=== PATIENT | female | born 1965 | race Caucasian/White ===

== ENCOUNTER 2017-05-26 15:41 | Outpatient (CLI) | payer BC ==
[2017-05-26 16:39] LABS: BASOPHILS # (AUTO) 0.1 10^3/uL (0.0-0.1); EOSINOPHILS # (AUTO) 0.2 10^3/uL (0.0-0.7); EOSINOPHILS % (AUTO) 3.5 %; HCT - HEMATOCRIT 39.6 % (37.0-47.0); HGB - HEMOGLOBIN 13.2 g/dL (12.0-16.0); LYMPHOCYTES # (AUTO) 2.3 10^3/uL (1.5-3.5); LYMPHOCYTES % (AUTO) 40.1 %; MEAN CORPUSCULAR HEMOGLOBIN 29.1 pg (27.0-31.0); MEAN CORPUSCULAR HGB CONC 33.2 g/dL (32.0-36.0); MEAN CORPUSCULAR VOLUME 87.4 fL (81.0-99.0); MEAN PLATELET VOLUME 9.7 fL (7.9-10.8); MONOCYTES # (AUTO) 0.6 10^3/uL (0.0-1.0); MONOCYTES % (AUTO) 10.7 %; NEUTROPHILS # (AUTO) 2.6 10^3/uL (1.5-6.6); NEUTROPHILS % (AUTO) 44.7 %; RED BLOOD COUNT 4.53 10^6/uL (4.20-5.40); RED CELL DISTRIBUTION WIDTH 13.7 % (12.0-15.0); UNCORRECTED WHITE BLOOD COUNT 5.8 x10^3/uL; WHITE BLOOD COUNT 5.8 x10^3/uL (4.8-10.8)
[2017-05-26 17:08] LABS: ALBUMIN/GLOBULIN RATIO 1.6 (1.0-2.2); BILIRUBIN,TOTAL 0.3 mg/dL (0.2-1.0); BUN - BLOOD UREA NITROGEN 15 mg/dL (6-20); CALCIUM 9.6 mg/dL (8.5-10.3); CARBON DIOXIDE - CO2 26 mmol/L (21-32); CHLORIDE 104 mmol/L (101-111); CREATININE 0.7 mg/dL (0.4-1.0); GFR - MDRD 88 (>89); GLUCOSE 90 mg/dL (70-100); POTASSIUM 3.3 mmol/L (3.5-5.0); SODIUM 138 mmol/L (135-145); TOTAL PROTEIN 7.3 g/dL (6.7-8.2)
[2017-05-26 17:19] LABS: FERRITIN 50.2 ng/mL (11.0-306.8)
[2017-05-26 17:33] LABS: THYROID STIMULATING HORMONE 1.63 uIU/mL (0.34-5.60)
[2017-05-28 18:11] LABS: TEST RESULT REPORT (())
[2017-05-28 19:47] LABS: ANA SCREEN POSITIVE (NEGATIVE)
[2017-06-03 23:07] LABS: TEST RESULT REPORT (())
== END 2017-05-26 15:42 | disposition home or self-care (01) ==
LOC: LAB 15:41
PROVIDERS: ATTEND Nurse Practitioner
DX: R53.83 Other fatigue (principal)
CPT/HCPCS: 36415; 80053; 81599; 82728; 84443; 85025; 85651; 86038; 86140

== ENCOUNTER 2020-09-06 14:13 | Emergency (ER) | payer BC ==
[2020-09-06] MEDS ORDERED: HYDROmorphone 1 MG/ML CARPUJECT IVP STA (15:55)
--- NOTE | 2020-09-06 15:56 | ED Physician Documentation ---
History of Present Illness - Stated complaint Stated Complaint: FALL - Chief complaint Chief Complaint: Trauma Ext - History obtained from History obtained from: Patient - History of Present Illness Timing: Prior to arrival - Additonal information Additional information: 54-year-old female comes into the emergency department with chief complaint of right wrist and bilateral hip and coccyx pain after a fall down about 3 stairs at this afternoon. She reports landing directly on her bottom and had such severe pain she could not get up for about 15 minutes. Did not strike her head or lose consciousness. Takes no oral anticoagulants. At present she is standing and mildly antalgic gait. However she feels popping within both of her hips when she walks. She also has pain on the right wrist radial side without deformity. No history of previous injury here. Review of Systems Constitutional: reports: Reviewed and negative Ears: reports: Reviewed and negative Nose: reports: Reviewed and negative Throat: reports: Reviewed and negative Cardiac: reports: Reviewed and negative Respiratory: reports: Reviewed and negative : reports: Reviewed and negative Skin: reports: Reviewed and negative Musculoskeletal: reports: Back pain, Joint pain Neurologic: reports: Reviewed and negative Psychiatric: reports: Reviewed and negative PD PAST MEDICAL HISTORY - Past Medical History Other Past Medical History: hx of sepsis - Past Surgical History Past Surgical History: No HEENT: Tonsil/Adenoidectomy - Present Medications Home Medications: Ambulatory Orders Medication Instructions Recorded Confirmed Hydrocodone/Acetaminophen [[place] 1 each PO BID PRN #10 tablet 09/06/20 5-325 Tablet] Ibuprofen [Motrin] 600 mg PO Q6H PRN #30 tab 09/06/20 - Allergies Allergies/Adverse Reactions: Allergies Allergy/AdvReac Type Severity Reaction Status Date / Time Sulfa (Sulfonamide Allergy Unknown Verified 05/20/16 16:04 Antibiotics) Tetracyclines Allergy Emesis Verified 09/06/20 14:18 - Social History Does the pt smoke?: No Smoking Status: Never smoker Does the pt drink ETOH?: No Does the pt have substance abuse?: No - Immunizations Immunizations are current?: Yes PD ED PE EXPANDED - General General: Alert, In Pain - Neck Neck: Adenopathy, Other. No: Soft tissue TTP - Back Back: No: Normal ROM (No midline thoracic or lumbar tenderness elicited. Reduced range of motion motion with forward flexion. Bilateral paraspinous tenderness. She does have very low midline coccyx pain.), Vertebral tenderness, CVA TTP right, CVA TTP left - Extremities Extremities: Right wrist (Tenderness distal radii. No swelling or deformity. Pain with passive motion. No snuffbox tenderness. 2+ radial pulse.) Results - Vitals Vitals: Vital Signs - 24 hr 09/06/20 09/06/20 14:18 16:50 Temperature 36.5 C 37.0 C Heart Rate 83 82 Respiratory 16 16 Rate Blood Pressure 139/92 H 111/82 H O2 Saturation 97 99 Oxygen O2 Source Room air - Rads (name of study) right wrist Radiology: Final report received (No acute fracture or dislocation) Bilateral hips Radiology: Final report received (No acute fracture. Osteoarthritis is noted.) sacrum/coccyx Radiology: Final report received (No acute fracture. Chronic appearing deformity involving the lower sacrum upper coccyx.) PD MEDICAL DECISION MAKING - ED course Complexity details: reviewed results, re-evaluated patient, considered differential, d/w patient, d/w family ED course: 54-year-old female presents to the emergency department with with acute right wr ist pain and bilateral hip coccyx pain after a fall down stairs at home today. On exam she has no snuffbox tenderness but the wrist is tender over the radial prominence. X-ray does not show any acute fracture pathology. However she will be placed in a Velcro thumb spica wrist splint. If her pain to the wrist is not markedly better in 7 to 10 days she is to return for repeat imaging. She also reported bilateral hip and coccyx pain. She is ambulatory though mildly Dolgic. X-rays do not show any acute fractures or deformity. Osteoarthritic changes are noted. This patient will be discharged home with prescription for ibuprofen and a very small amount of hydrocodone to be used for severe pain. Emergent return precautions discussed Departure - Departure Disposition: 01 Home, Self Care Clinical Impression: Fall (on) (from) other stairs and steps, initial encounter, Bilateral hip pain, Pain in the coccyx Contusion of wrist, right Qualifiers: Encounter type: initial encounter Qualified Code(s): S60.211A - Contusion of right wrist, initial encounter Condition: Stable Record reviewed to determine appropriate education?: Yes Instructions: ED Splint Care Velcro, ED Sprain Wrist Prescriptions: Ibuprofen [Motrin] 600 mg PO Q6H PRN #30 tab PRN Reason: Pain Hydrocodone/Acetaminophen [[place] 5-325 Tablet] 1 each PO BID PRN #10 tablet PRN Reason: Pain Comments: The x-rays of your hips show osteoarthritis but there are no acute fractures seen. It does appear as though you may have fractured your coccyx sometime in the distant past however. The x-ray of your right wrist does not show any broken bones. This may simpley be a bad contusion or sprain of the wrist. However I would like you to wear the wrist splint for much of the next week. I would like you to take ibuprofen 3 times a day with food for the next 5 to 6 days. If your pain is not markedly better within 7-10 you should return to the emergency department for repeat imaging of the wrist. I have prescribed a very limited amount of hydrocodone. Please be careful using this. It may make you dizzy and unsafe to drive.
--- NOTE | 2020-09-06 16:43 | XRAY Report ---
PROCEDURE: Wrist 3 View RT INDICATIONS: r/o fx after fall TECHNIQUE: 3 views of the wrist were acquired. COMPARISON: None FINDINGS: Bones: No fractures or dislocations. No suspicious bony lesions. Mild osteophytic changes along ra dial aspect of right wrist are seen. Scaphoid view: Scaphoid is grossly intact. Soft tissues: No suspicious soft tissue calcifications. IMPRESSION: No acute right wrist fracture or dislocation. Mild wrist joint osteoarthritis. Reviewed by: Emil Young MD on 09/06/2020 4:42 PM PDT Approved by: Emil Young MD on 09/06/2020 4:42 PM PDT Station ID: [id number]
--- NOTE | 2020-09-06 16:44 | XRAY Report ---
PROCEDURE: Sacrum/Coccyx INDICATIONS: fall, r/o fx TECHNIQUE: 3 views of the sacrum and coccyx acquired. COMPARISON: None FINDINGS: Bones: No acute fractures or dislocations. Likely chronic deformity involving lower sacrum/upper светлана cyx is seen. Bilateral sacroiliac joint osteoarthritic changes are seen. No evidence of ankylosis or erosion. No suspicious bony lesions. Soft tissues: Visualized bowel gas pattern is normal. No suspicious soft tissue densities. IMPRESSION: No gross acute sacral or coccygeal fracture. Chronic appearing deformity involving lower sacrum/upper coccyx. Bilateral sacroiliac joint osteoarthritis. Reviewed by: Emil Young MD on 09/06/2020 4:43 PM PDT Approved by: Emil Young MD on 09/06/2020 4:43 PM PDT Station ID: [id number]
--- NOTE | 2020-09-06 16:45 | XRAY Report ---
PROCEDURE: Hips 2V BILAT INDICATIONS: fall, r/o fx TECHNIQUE: 3 views of the hip were acquired. COMPARISON: None FINDINGS: Bones: No fractures or dislocations. Mild to moderate bilateral hip joint osteoarthritic changes are seen slightly worse on the right side. No evidence of avascular necrosis of femoral head. No suspici ous bony lesions. The visualized pelvic ring appears intact. Soft tissues: No suspicious soft tissue calcifications or masses. IMPRESSION: Mild to moderate bilateral hip joint osteoarthritis slightly worse on the right side. No hip fracture or dislocation. No evidence of avascular necrosis. Reviewed by: Emil Young MD on 09/06/2020 4:44 PM PDT Approved by: Emil Young MD on 09/06/2020 4:44 PM PDT Station ID: [id number]
[2020-09-06 16:51] VITALS: BP 111/82
== END 2020-09-06 17:20 | disposition home or self-care (01) ==
LOC: ED 14:13
DX: S60.211A Contusion of right wrist, initial encounter (principal); W10.9XXA Fall (on) (from) unspecified stairs and steps, initial encounter
CPT/HCPCS: 72220; 73110; 73521; 96374; 99283; 99284; J1170; 80185

== ENCOUNTER 2020-09-24 08:15 | Emergency (ER) | payer BC ==
[2020-09-24] MEDS ORDERED: KETOROLAC 60 MG/2 ML VIAL IM STA (09:08)
--- NOTE | 2020-09-24 09:44 | XRAY Report ---
PROCEDURE: Thoracic Spine 3 View INDICATIONS: midthoracic pain s/p fall 10d ago TECHNIQUE: 3 views of the thoracic spine were acquired. COMPARISON: None. FINDINGS: Bones: No fractures or dislocations. No suspicious bony lesions. 12 pairs of ribs are noted, and a ppear intact where visualized. Age-appropriate degenerative changes are seen. Soft tissues: No paravertebral stripe thickening. IMPRESSION: Normal plain films for age, without a recent fracture identified. Reviewed by: Scott Schneider MD on 09/24/2020 8:43 AM [facility] Approved by: Scott Schneider MD on 09/24/2020 8:43 AM [facility] Station ID: [id number]
--- NOTE | 2020-09-24 09:46 | XRAY Report ---
PROCEDURE: Wrist 4 View RT INDICATIONS: ANATOMIC SNUFFBOX TTP TECHNIQUE: 4 views of the wrist were acquired. COMPARISON: None FINDINGS: Bones: No definite fractures or dislocations. No suspicious bony lesions. Age-appropriate degenera tive changes are seen. Scaphoid view: Minimal lucency is seen along the waist of the scaphoid. Soft tissues: No suspicious soft tissue calcifications. IMPRESSION: Minimal lucency is seen along the waist of the scaphoid, which is felt most likely to be related to p rominent trabeculations. However, in this patient with a presenting history of a fall with tenderness to palpation within the snuffbox, differential diagnosis includes a nondisplaced fracture. If clinically appropriate, please consider a dedicated wrist CT for further evaluation. Reviewed by: Scott Schneider MD on 09/24/2020 8:[address] [facility] Approved by: Scott Schneider MD on 09/24/2020 8:[address] [facility] Station ID: [id number]
[2020-09-24 10:14] VITALS: BP 112/79
--- NOTE | 2020-09-24 17:35 | ED Physician Documentation ---
History of Present Illness - Stated complaint Stated Complaint: GLF/BACK PX - Chief complaint Chief Complaint: Back Pain - History obtained from History obtained from: Patient - Additonal information Additional information: 54-year-old woman with past medical history of thoracic syrinx presents status post fall down 2-3 steps 2 weeks ago. Patient states that she has had midthoracic back pain since that time and also complains of worsening right wrist pain. She was put in a thumb spica splint and has been keeping it on, has not been experiencing any worsening swelling. She is neurovascularly intact. 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 LOGGER: None : None HEENT: None Psych: None Musculoskeletal: None Derm: None - Past Surgical History Past Surgical History: No HEENT: Tonsil/Adenoidectomy, Other - Present Medications Home Medications: Ambulatory Orders Medication Instructions Recorded Confirmed Hydrocodone/Acetaminophen [[place] 1 each PO BID PRN #10 tablet 09/06/20 5-325 Tablet] Ibuprofen [Motrin] 600 mg PO Q6H PRN #30 tab 09/06/20 - Allergies Allergies/Adverse Reactions: Allergies Allergy/AdvReac Type Severity Reaction Status Date / Time Sulfa (Sulfonamide Allergy Unknown Verified 09/24/20 08:19 Antibiotics) Tetracyclines Allergy Emesis Verified 09/24/20 08:19 - Social History Does the pt smoke?: No Smoking Status: Former smoker Does the pt drink ETOH?: No Does the pt have substance abuse?: No - Immunizations Immunizations are current?: Yes - POLST Patient has POLST: No PD ED PE NORMAL - Vitals Vital signs reviewed: Yes - General General: Alert and oriented X 3 - Back Back: No spinal TTP (lateral midthoracic discomfort to palpation) - Extremities Extremities: No deformity, Other (+anatomic snuffbox ttp in R wrist) - Neuro Neuro: Alert and oriented X 3, No motor deficit, No sensory deficit Results - Vitals Vitals: Vital Signs - 24 hr 09/24/20 09/24/20 08:19 10:13 Temperature 36.7 C 36.9 C Heart Rate 95 79 Respiratory 16 16 Rate Blood Pressure 115/82 H 112/79 O2 Saturation 99 98 Oxygen O2 Source Room air PD MEDICAL DECISION MAKING - ED course Complexity details: reviewed results, d/w patient ED course: 34-year-old woman presents with anatomic snuffbox tenderness after a fall 2 we eks ago. Possible scaphoid fracture on x-rays. Patient referred to outpatient orthopedics. Also with midthoracic lateral back pain, without focal deficits on exam. spinal xrays without acute traumatic etiology. Advised patient to follow-up with primary for possible neurosurgical evaluation of syrinx and outpatient MRI. discharged with thumb spica and ortho follow up. strict return precautions given. Departure - Departure Disposition: Home, Self Care Clinical Impression: Wrist pain, Back pain Condition: Good Instructions: ED Low Back Pain Injury Follow-Up: Marcello Moralez MD [Provider Admit Priv/Credential] - Comments: Your xrays of the thoracic spine look normal. You may have a nondisplaced break of one of your bones in your wrist called the scaphoid bone. You will need to follow-up with orthopedics in 2 weeks for repeat x-ray. Make sure you wear your splint until that time. Return to the ED for any new or worsening symptoms. Discharge Date/Time: 09/24/20 10:23
== END 2020-09-24 10:23 | disposition home or self-care (01) ==
LOC: ED 08:15
DX: M54.6 Pain in thoracic spine (principal); M25.531 Pain in right wrist; W10.9XXA Fall (on) (from) unspecified stairs and steps, initial encounter; Z87.891 Personal history of nicotine dependence
CPT/HCPCS: 72072; 96372; 99282; 99284

== ENCOUNTER 2020-09-26 10:09 | Outpatient (CLI) | payer BC ==
--- NOTE | 2020-09-26 12:31 | XRAY Report ---
PROCEDURE: Cervical Spine Complete INDICATIONS: CERVICAL RADICULOPATHY TECHNIQUE: 5 view(s) of the cervical spine were acquired. COMPARISON: None. FINDINGS: Bones: No fractures or dislocations to the T1 level. The lateral masses of C1 appear intact on the odontoid view. No suspicious bony lesions. Soft tissues: No prevertebral soft tissue swelling. IMPRESSION: Minimal degenerative disc disease seen along the middle third of the cervical spine with out evidence of spinal or foraminal stenosis or subluxation. The oblique views do not show significan t foraminal stenosis. No fracture found, no soft tissue abnormality seen. Reviewed by: Aidan Edgar MD on 09/26/2020 12:29 PM PST Approved by: Aidan Edgar MD on 09/26/2020 12:29 PM PST Station ID: [id number]
== END 2020-09-26 23:59 | disposition home or self-care (01) ==
LOC: DI.N 10:09
PROVIDERS: ATTEND Physician Assistant Medical
DX: M50.121 Cervical disc disorder at C4-C5 level with radiculopathy (principal)

== ENCOUNTER 2020-11-29 07:12 | Outpatient (CLI) | payer BC ==
--- NOTE | 2020-12-10 14:18 | MRI Report ---
PROCEDURE: Thoracic Spine W/O INDICATIONS: THORACIC CYST, THORACIC BACK PAIN TECHNIQUE: Noncontrast sagittal T1 spine echo and T2 fast spin echo, sagittal STIR, axial T1 and T2 fast spin ec ho through the thoracic spine. COMPARISON: This dictation was delayed, awaiting outside prior images, which have not arrived by the time of this dictation. The study was presented for interpretation on the morning of 12/10/2020. FINDINGS: Image quality: Diagnostic, with note made of motion artifact. Alignment and Curvature: There is mildly accentuated thoracic spinal curvature. Bone Marrow: Marrow is of normal overall signal. Scattered foci of T1-weighted hyperintensity and T 2-weighted hyperintensity are seen, without increased STIR signal. These foci are attributed to benig n vertebral body hemangiomas. No acute vertebral body compression fractures. Spinal Cord: There is mild prominence of the central canal seen which is centered at the T3 level, a s seen on series 601 image 8 and on series 701 image 20. Visualized spinal cord is normal in size and otherwise normal and signal. Paraspinous Soft Tissues: No paravertebral masses. Miscellaneous: On axial images, central canal and foramina appear widely patent at all scanned level s. Minimal to mild age-appropriate degenerative changes can be seen. IMPRESSION: Mild prominence of the central canal can be seen centered at the T3 level. This is felt most likely to be a benign incidental finding. However, as a conservative measure, please consider a dedicated follow-up MRI performed with IV contrast to evaluate for a potential underlying mass. Otherwise, normal thoracic spine MRI for age. Reviewed by: Scott Schneider MD on 12/10/2020 1:16 PM [facility] Approved by: Scott Schneider MD on 12/10/2020 1:16 PM [facility] Station ID: [id number]
== END 2020-11-29 07:13 | disposition home or self-care (01) ==
LOC: DI 07:12
PROVIDERS: ATTEND Internal Medicine
DX: M54.6 Pain in thoracic spine (principal); J98.4 Other disorders of lung